=== PATIENT | female | born 1955 | race African-American/Black ===

== ENCOUNTER → 2017-04-04 | Day surgery (SDC) | payer MEDICARE, MEDICAID ==
[~2017-04-04] MED LIST: Fentanyl 100 MCG/2 ML VIAL ONE; Midazolam HCl 2 mg/2 ml Vial ONE; Sodium Chloride 0.9% 10 ML ONE
[2017-04-04 07:27] LABS: #Basophils 0.1 thou/uL (0.0-0.2); #Eosinphils 0.2 thou/uL (0.0-0.7); #Lymphocytes 2.4 thou/uL (1.20-3.40); #Monocytes 0.8 thou/uL (0.11-0.59); #Neutrophils 4.4 thou/uL (1.40-6.50); %Basophils 1.2 % (0.0-1.0); %Lymphocytes 30.7 % (21.0-51.0); %Monocytes 9.8 % (0.0-10.0); %Neutrophils 55.3 % (42.0-75.0); Hemoglobin 13.2 g/dL (12.0-16.0); Mean Corpuscular HGB CONC 32.7 g/dL (32.0-36.0); Mean Corpuscular Hemoglobin 27.9 pg (27.0-31.0); Mean Corpuscular Volume 85.2 fl (81.0-99.0); Platelet Count 287 thou/uL (130-400); RBC Distribution Width 13.9 % (11.5-14.5); Red Blood Cell (RBC) Count 4.74 mill/uL (4.20-5.40); White Blood Cell (WBC) Count 7.9 thou/uL (4.8-10.8)
[2017-04-04 07:38] LABS: PTT 29.6 SEC (22.9-36.1); Prothrombin Time 13.3 SEC (12.0-14.7)
--- NOTE | 2017-04-04 09:29 | ULT ---
ULTRASOUND HEPATIC DOPPLER: HISTORY: Cirrhosis. COMPARISON: None. FINDINGS: Real-time López-scale color Doppler and spectral analysis of the liver was performed. The hepatic con tour is nodular. The liver measures 16.2 cm in length. The main portal vein is patent with antegrade flow. The common bile duct measures 5 mm. The hepatic artery is patent. The hepatic veins are patent with normal directional flow. The right and left portal veins are patent with normal directional flow. The spleen measures 11.4 x 7 x 5.2 cm . The gallbladder has been removed. Sonographic Vasquez sign is negative. IMPRESSION: Hepatic cirrhosis with normal directional vascular flow. POS: [facility]
[2017-04-04 11:52] VITALS: TEMP 97.4; BMI 29.1
--- NOTE | 2017-04-05 07:48 | ULT ---
SONOGRAPHIC GUIDED RANDOM HEPATIC BIOPSY: History: Cirrhosis. FINDINGS: After explaining the procedure and answering all questions, limited sonographic survey was performed. Sterile technique, buffered local anesthesia, sonographic guidance and a sub xiphoid approach were u sed to carefully advance the tip of a 17 gauge Trocar needle into the left liver lobe. Two 18 gauge c ore biopsy specimens were obtained without difficulty. Needle was removed. Post procedure imaging pedro ws no evidence of complication. Patient tolerated the procedure well and was returned to the holding area in good condition for further monitoring. IMPRESSION: Technically successful random hepatic biopsy. Pathology is pending. POS: [facility]
== END ==
LOC: ULT 07:05 → EDSTATUS 08:00 → ULT 08:14
PROVIDERS: ATTEND Internal Medicine Gastroenterology
PROC: BF45ZZZ Ultrasonography of Liver (ICD-10-PCS; principal; 2017-04-04)
PROC: 0FB23ZX Excision of Left Lobe Liver, Percutaneous Approach, Diagnostic (ICD-10-PCS; 2017-04-04)
DX: K75.9 Inflammatory liver disease, unspecified (principal); K74.3 Primary biliary cirrhosis; E11.9 Type 2 diabetes mellitus without complications; I10 Essential (primary) hypertension; E78.5 Hyperlipidemia, unspecified; I25.2 Old myocardial infarction; F17.210 Nicotine dependence, cigarettes, uncomplicated; Z79.2 Long term (current) use of antibiotics; Z79.82 Long term (current) use of aspirin; Z79.899 Other long term (current) drug therapy; Z88.6 Allergy status to analgesic agent; Z88.1 Allergy status to other antibiotic agents; Z88.5 Allergy status to narcotic agent
CPT/HCPCS: 36415; 47000; 76705; 76942; 85025; 85610; 85730; 88307; 88313; A4216; J2250; J3010

== ENCOUNTER 2017-11-27 09:29 | Outpatient (CLI) | payer MEDICARE, MEDICAID | END 2017-11-27 09:30 | disposition home or self-care (01) | LOC: BICMRI 09:29 | PROVIDERS: ATTEND Internal Medicine Gastroenterology | DX: K74.3 Primary biliary cirrhosis (principal); R93.3 Abnormal findings on diagnostic imaging of other parts of digestive tract; K76.9 Liver disease, unspecified | CPT/HCPCS: 74183; 82565 ==

== ENCOUNTER 2017-12-18 08:56 | Outpatient (CLI) | payer MEDICARE, MEDICAID | END 2017-12-18 08:57 | disposition home or self-care (01) | LOC: CP 08:56 | PROVIDERS: ATTEND Internal Medicine | DX: R06.09 Other forms of dyspnea (principal); J45.909 Unspecified asthma, uncomplicated; R91.1 Solitary pulmonary nodule; G47.33 Obstructive sleep apnea (adult) (pediatric) | CPT/HCPCS: 94060; 94727; 94729 ==

== ENCOUNTER 2018-01-20 20:30 | Outpatient (CLI) | payer MEDICARE, MEDICAID | END 2018-01-20 20:31 | disposition home or self-care (01) | LOC: SLEEPLAB 20:30 | PROVIDERS: ATTEND Internal Medicine | DX: G47.33 Obstructive sleep apnea (adult) (pediatric) (principal); R53.83 Other fatigue; E66.9 Obesity, unspecified; R35.1 Nocturia; R51 Headache; I10 Essential (primary) hypertension; R06.83 Snoring; G47.63 Sleep related bruxism; Z68.24 Body mass index [BMI] 24.0-24.9, adult | CPT/HCPCS: 95810 ==

== ENCOUNTER 2018-01-22 09:37 | Day surgery (SDC) | payer MEDICARE, MEDICAID ==
[2018-01-22] MEDS ORDERED: Midazolam HCl 2 mg/2 ml Vial ONE (10:54)
[2018-01-22] MEDS ORDERED: Fentanyl 100 MCG/2 ML VIAL ONE (10:54)
[2018-01-22 12:41] LABS: Anion Gap 13 mmol/L (10-20); BUN (Urea Nitrogen) 19 mg/dL (9.8-20.1); Calc. Creatinine Clearance 0 mL/min (70-130); Calcium 9.9 mg/dL (7.8-10.44); Carbon Dioxide 21 mmol/L (23-31); Chloride 106 mmol/L (98-107); Estimated GFR-MDRD 71; Glucose 93 mg/dL (80-115); Potassium 3.6 mmol/L (3.5-5.1); Sodium 136 mmol/L (136-145)
--- NOTE | 2018-01-22 14:39 | OP ---
DATE OF SERVICE: 01/22/2018 PROCEDURE: Colonoscopy with snare polypectomy. SURGEON: Sunil Duque M.D. ANESTHESIA: Medication given per Anesthesiology Department. PREOPERATIVE DIAGNOSIS: History of colon adenoma POSTOPERATIVE DIAGNOSIS: Transverse colon polyp, 5 mm, status post polypectomy. PROCEDURE IN DETAIL: A written consent was obtained prior to procedure. After adequate sedation, re ctal exam performed was normal. Endoscope was advanced to the cecum. The quality of bowel prep was good. The cecum, ascending colon, hepatic flexure appeared normal. In the mid transverse, a 5 mm se ssile polyp was noted and was removed with a cold snare and retrieved. The splenic flexure, descendi ng colon, and rectosigmoid colon appeared normal. Retroflexion was normal. The patient tolerated th e procedure well. ASSESSMENT: 1. Transverse colon polyp. 2. Otherwise normal colon exam. RECOMMENDATIONS: Await biopsy result.
== END 2018-01-22 12:30 | disposition home or self-care (01) ==
LOC: SDC 09:37
PROVIDERS: ATTEND Internal Medicine Gastroenterology
PROC: 0DBL8ZX Excision of Transverse Colon, Via Natural or Artificial Opening Endoscopic, Diagnostic (ICD-10-PCS; principal; 2018-01-22)
DX: Z12.11 Encounter for screening for malignant neoplasm of colon (principal); D12.3 Benign neoplasm of transverse colon; K74.3 Primary biliary cirrhosis; K59.00 Constipation, unspecified; K21.9 Gastro-esophageal reflux disease without esophagitis; J44.9 Chronic obstructive pulmonary disease, unspecified; F41.9 Anxiety disorder, unspecified; E78.00 Pure hypercholesterolemia, unspecified; I25.10 Atherosclerotic heart disease of native coronary artery without angina pectoris; I10 Essential (primary) hypertension; I25.2 Old myocardial infarction; E11.9 Type 2 diabetes mellitus without complications; F17.210 Nicotine dependence, cigarettes, uncomplicated; Z86.010 Personal history of colon polyps; Z79.4 Long term (current) use of insulin; Z79.899 Other long term (current) drug therapy; Z88.1 Allergy status to other antibiotic agents; Z88.5 Allergy status to narcotic agent; Z88.8 Allergy status to other drugs, medicaments and biological substances
CPT/HCPCS: 36416; 80048; 88305; J2250; J3010

== ENCOUNTER 2018-05-20 08:14 | Outpatient (CLI) | payer MEDICARE, MEDICAID ==
[2018-05-20] MEDS ORDERED: Gadobenate Dimeglumine 529 MG/1 ML (20ML VIAL) ONE (09:34)
--- NOTE | 2018-05-20 11:48 | MRI ---
MRI ABDOMEN WITH AND WITHOUT CONTRAST: Date: 05/20/18 HISTORY: Abnormal imaging of liver. R93.2. COMPARISON: MRI dated 11/27/17. FINDINGS: There is consolidation anterior segment right lower lobe with enhancement. There is also confluent ri ght pericardiophrenic adenopathy measuring up to 1.0 cm in short axis. The adenopathy is similar. The hepatic segment VII 15.0 mm mass previously seen on the prior examination is not seen on today's exam. There are hepatic segment VIII small arterial hyperenhancing foci which are subcentimeter and r etain contrast through the entire examination. There is peripheral flame-shaped arterial enhancement in hepatic segment V which is similar. Somewhat mass-like enhancement hepatic segment V, axial image 1026, series 10, measures 14.0 mm, not previously well seen on the prior examination, which retains c ontrast throughout the exam without any washout. In hepatic segment V abutting the capsule is an area of peripheral enhancement which is somewhat triangular-shaped with adjacent fibrosis which enhances on the 11 minute delayed phase. Spleen is unremarkable. Adrenal glands are unremarkable. Pancreas unremarkable. Cyst intrapolar left kidney. Moderate atherosclerotic plaque at the aorta. IMPRESSION: Small hepatic nodules, some of which were not seen on the prior examination and some of the prior exa m nodules are not seen on this examination. This likely reflects underlying dysplastic nodules with m ild hepatic cirrhosis. There is also evidence of peripheral fibrosis . Follow-up MRI with and without contrast in 6 months is recommended. Recommend correlation with recent biopsy. Given the small perip ancreatic and mildly prominent right pericardiophrenic lymph nodes, primary biliary cirrhosis is with in the differential. POS: [facility]
== END 2018-05-20 08:15 | disposition home or self-care (01) ==
LOC: BICMRI 08:14 → CP 08:15
PROVIDERS: ATTEND Internal Medicine Gastroenterology
DX: J44.9 Chronic obstructive pulmonary disease, unspecified (principal); R93.2 Abnormal findings on diagnostic imaging of liver and biliary tract; K76.9 Liver disease, unspecified; K74.3 Primary biliary cirrhosis; R63.4 Abnormal weight loss; K74.0 Hepatic fibrosis
CPT/HCPCS: 74183; 82565; A9577

== ENCOUNTER 2018-11-26 08:59 | Outpatient (CLI) | payer MEDICARE, MEDICAID ==
--- NOTE | 2018-11-26 09:53 | CT ---
Exam: CHEST CT WITHOUT CONTRAST: HISTORY: Pulmonary nodule. Smoker. COMPARISON: None. FINDINGS: Limited evaluation of the mediastinum due to lack of IV contrast. No mediastinal mass, lymphadenopath y or hematoma. Heart is not enlarged. No significant pericardial fluid. There is extensive atherosclerosis of the aorta. Possible short segment chronic dissection involving the descending thor acic aorta may be present. Extensive coronary calcifications. Mild dilatation of the proximal abdominal aorta measuring 3.4 x 2.5 cm. Multiple hypodensities anterior to the heart with some adjacent serpiginous hypodensities. The possib ility of a vascular lesion cannot be entirely excluded. This largest component measures 1.8 x 1.3 cm and has an attenuation coefficient of 24 Hounsfield units. Gallbladder is surgically absent. Visualized upper solid organs are unremarkable. Extensive emphysematous changes throughout the lung parenchyma. No suspicious masses or consolidation . Linear opacities involving both lower lobes likely representing subsegmental atelectasis. Right lung: Irregular groundglass opacity middle lobe measuring 0.9 x 1.0 cm. Left lung: No masses or consolidation. Trachea and central bronchi are patent. Pleural spaces: No pleural effusion. Pneumothorax: None. IMPRESSION: 1. Extensive emphysematous changes. 2. Mild dilatation of the proximal abdominal aorta, incompletely evaluated. 3. 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 4. Irregular groundglass opacity in the middle lobe. Follow-up CT in 3 months is recommended. CODE T Transcribed Date/Time: 11/26/2018 10:18 AM
== END 2018-11-26 09:00 | disposition home or self-care (01) ==
LOC: BICCT 08:59
PROVIDERS: ATTEND Internal Medicine
DX: R91.1 Solitary pulmonary nodule (principal); I77.811 Abdominal aortic ectasia; R91.8 Other nonspecific abnormal finding of lung field
CPT/HCPCS: 71250

== ENCOUNTER 2020-04-26 11:26 | Outpatient (CLI) | payer MEDICARE, MEDICAID ==
--- NOTE | 2020-04-26 12:19 | CT ---
CT OF THE CHEST WITH IV CONTRAST INDICATION: Follow-up pulmonary nodule COMPARISON: Prior CT the thorax dated December 01, 2019 and November 26, 2018 FINDINGS: CHEST: Lungs: Scattered emphysema is stable. The enlarging pulmonary nodule of the right upper lobe demonstr ates continued enlargement since November 11, 2028 measuring 1.1 x 0.9 cm where previously this measured 1.0 x 0.7 cm. The small groundglass nodular opacity measuring 9.5 mm within the lateral righ t middle lobe is stable. The spiculated pulmonary nodule within the left upper lobe measuring 6 mm is stable. There are areas of subsegmental volume loss involving both lower lobes. Pleural space: No effusion. Mediastinum: Enlarged mediastinal and hilar lymphadenopathy stable. The focal penetrating atheromatou s ulcer involving the descending thoracic aorta image 40 of series 2 is slightly larger measuring 1.2 cm previously measured 1.1 cm. There are severe vascular calcifications seen involving the visual ized vasculature. Upper abdomen:Gallbladder is surgically absent. Visualized adrenal glands appear within normal limits . Osseous structures: No acute osseous abnormality. No destructive osteolytic or osteoblastic lesion i s identified. There is scattered degenerative and osteoarthritic changes. Soft tissues:Normal. IMPRESSION: 1. Continued enlargement of the right upper lobe pulmonary nodule. Other stable scattered pulmonary n odules as above. Stable emphysema. 2. 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 3. Stable mediastinal hilar lymphadenopathy.
[2020-04-26] MEDS ORDERED: Iopamidol 370 76% 100 ML VIAL ONE (14:00)
== END 2020-04-26 11:27 | disposition home or self-care (01) ==
LOC: BICCT 11:26
PROVIDERS: ATTEND Internal Medicine Critical Care Medicine
DX: R91.1 Solitary pulmonary nodule (principal); J44.9 Chronic obstructive pulmonary disease, unspecified; I71.2 Thoracic aortic aneurysm, without rupture; R59.0 Localized enlarged lymph nodes
CPT/HCPCS: 71260; 82565; Q9967

== ENCOUNTER 2020-05-10 11:07 | Outpatient (CLI) | payer MEDICARE, MEDICAID ==
--- NOTE | 2020-05-10 14:30 | PET ---
PET CT: HISTORY: A 65-year-old female with solitary pulmonary nodule. TECHNIQUE: PET scanning with CT attenuation correction was performed from the base of the brain through the prox imal thighs following intravenous administration of 10 mCi of [id number] in the right nicholson d. COMPARISON: None. CORRELATION: CT chest dated 04/26/2020. FINDINGS: There is hypermetabolic activity in the enlarging right upper lobe lung nodule noted on the CT scan w ith an SUV of 7.2. No other hypermetabolic lung nodules are seen. The subcentimeter nodules noted o n the CT scan do not demonstrate abnormal FDG localization. There is derick hypermetabolism in the right paratracheal lymph node with an SUV of 3.4, right hilar l ymph nodes with an SUV of 4, left hilar lymph node with an SUV of 4.8, and a right pericardiac lymph node with an SUV of 3.3. No derick hypermetabolism is seen in the neck, axilla, abdomen, or pelvis. No hypermetabolic, liver, adrenal, or skeletal lesions are identified. There is physiologic activity in the GI and tracts and the visualized portions of the brain. The CT scan used for attenuation correction demonstrates no evidence of pleural effusions or ascites. 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 POS: [facility]
== END 2020-05-10 11:08 | disposition home or self-care (01) ==
LOC: PET 11:07
PROVIDERS: ATTEND Internal Medicine Critical Care Medicine
DX: R91.1 Solitary pulmonary nodule (principal); C34.11 Malignant neoplasm of upper lobe, right bronchus or lung; C77.1 Secondary and unspecified malignant neoplasm of intrathoracic lymph nodes
CPT/HCPCS: 78815; A9552

== ENCOUNTER 2020-08-29 12:24 | Outpatient (CLI) | payer MEDICARE, MEDICAID ==
[2020-08-29 13:53] LABS: Hemoglobin 13.2 g/dL (12.0-15.5); Mean Corpuscular HGB CONC 32.4 g/dL (32.0-36.0); Mean Corpuscular Volume 83.6 fl (81.6-98.3); Mean Platelet Volume 9.3 fl (7.4-10.4); Platelet Count 381 10x3/uL (150-450); RBC Distribution Width 16.3 % (11.5-14.5); Red Blood Cell (RBC) Count 4.88 10x6/uL (3.90-5.03); White Blood Cell (WBC) Count 6.9 10x3/uL (3.5-10.5)
[2020-08-29 14:08] LABS: Anion Gap 15 mmol/L (10-20); BUN (Urea Nitrogen) 25 mg/dL (9.8-20.1); Calc. Creatinine Clearance 0 mL/min (70-130); Carbon Dioxide 27 mmol/L (23-31); Chloride 104 mmol/L (98-107); Glucose 155 mg/dL (80-115); Potassium 4.3 mmol/L (3.5-5.1); Sodium 142 mmol/L (136-145)
[2020-08-29 21:01] LABS: SARS-CoV-2 PCR by NAA Not Detected (NotDetected)
== END 2020-08-29 12:25 | disposition home or self-care (01) ==
LOC: LABBT 12:24
PROVIDERS: ATTEND Thoracic Surgery (Cardiothoracic Vascular Surgery)
DX: Z01.812 Encounter for preprocedural laboratory examination (principal); C34.11 Malignant neoplasm of upper lobe, right bronchus or lung; Z20.822 Contact with and (suspected) exposure to COVID-19
CPT/HCPCS: 80048; 85027; U0003; U0005; 87635

== ENCOUNTER 2020-09-01 06:34 | Day surgery (SDC) | payer MEDICARE, MEDICAID ==
[2020-08-31 09:37] VITALS: BMI 21.2
[2020-09-01] MEDS ORDERED: Fentanyl 100 MCG/2 ML VIAL ONE ×3 (09:37→11:19)
[2020-09-01] MEDS ORDERED: Glycopyrrolate 0.2 MG/ML 5 ML SYRINGE ONE (09:50)
[2020-09-01] MEDS ORDERED: Rocuronium Bromide 10 MG/ML (10ML VIAL) ONE (09:50)
[2020-09-01] MEDS ORDERED: PHENYLEPHRINE-NS 100 MCG/ML 10 ML SYRINGE ONE (09:50)
[2020-09-01] MEDS ORDERED: PROPOFOL 200 MG/20 ML VIAL ONE (09:50)
[2020-09-01] MEDS ORDERED: Ondansetron PF 4 MG/2 ML Vial ONE (09:50)
[2020-09-01] MEDS ORDERED: SUGAMMADEX SODIUM 200 MG/2 ML VIAL ONE (10:28)
[2020-09-01] MEDS ORDERED: Albuterol Sulfate 1.25 MG/3 ML NEB ONE (11:04)
[2020-09-01] MEDS ORDERED: HYDROcodone/Acetaminophen 5/325 mg Tablet ONE (13:03)
== END 2020-09-01 14:10 | disposition home or self-care (01) ==
LOC: SDC 06:34
PROVIDERS: ATTEND Thoracic Surgery (Cardiothoracic Vascular Surgery)
PROC: 07B74ZX Excision of Thorax Lymphatic, Percutaneous Endoscopic Approach, Diagnostic (ICD-10-PCS; principal; 2020-09-01)
DX: I88.8 Other nonspecific lymphadenitis (principal); C34.11 Malignant neoplasm of upper lobe, right bronchus or lung; I10 Essential (primary) hypertension; E11.9 Type 2 diabetes mellitus without complications; I25.10 Atherosclerotic heart disease of native coronary artery without angina pectoris; F17.210 Nicotine dependence, cigarettes, uncomplicated; Z79.4 Long term (current) use of insulin; Z79.82 Long term (current) use of aspirin; Z79.899 Other long term (current) drug therapy; Z88.1 Allergy status to other antibiotic agents; Z88.6 Allergy status to analgesic agent
CPT/HCPCS: 36416; 88184; 88305; 88307; 88312; J0690; J2405; J2704; J3010

== ENCOUNTER 2022-11-22 02:19 | Inpatient (IN) | payer OTHER, MEDICAID ==
[2022-11-22] MEDS ORDERED: cefTRIAXone (ROCEPHIN) 1 GM VIAL ONE (03:37)
[2022-11-22 03:47] LABS: Bacteria/HPF None Seen HPF (None Seen); Bilirubin Negative (Negative); Blood, Urine Negative (Negative); CAUTI Indications for Culture Alt mental st,lethar; Clarity Clear (Clear); Glucose, Urine (Dipstick) Normal (Negative); Ketone, Urine Negative (Negative); Leukocyte Negative Leu/uL (Negative); Nitrite Negative (Negative); Protein, Urine (Dipstick) 300 mg/dL (Neg-Trace); RBC/HPF 0-3 HPF (0-3); Specific Gravity, Urine 1.016 (1.002-1.036); Squamous Epithelial None Seen HPF (0-3); Urobilinogen Normal mg/dL (Less than 2); WBC/HPF 0-3 HPF (0-3)
[2022-11-22 03:50] LABS: #Neutrophils 6.5 thou/uL (1.40-6.50); %Basophils 0.1 % (0.0-1.0); %Eosinophils 0.1 % (0.0-10.0); %Lymphocytes 23.9 % (21.0-51.0); %Monocytes 10.2 % (0.0-10.0); %Neutrophils 65.4 % (42.0-75.0); Hematocrit 40.1 % (36.0-47.0); Hemoglobin 12.6 g/dL (12.0-16.0); Mean Corpuscular HGB CONC 31.4 g/dL (32.0-36.0); Mean Corpuscular Hemoglobin 25.6 pg (27.0-31.0); Mean Corpuscular Volume 81.5 fl (78.0-98.0); Mean Platelet Volume 9.1 fL (7.4-10.4); Platelet Count 611 10x3/uL (130-400); RBC Distribution Width 17.7 % (11.5-14.5); Red Blood Cell (RBC) Count 4.92 mill/uL (4.20-5.40)
[2022-11-22 03:52] LABS: SARS-CoV-2 NAA Rapid Test Not Detected (NotDetected)
[2022-11-22 04:06] LABS: Troponin I 0.013 ng/mL (< 0.028)
[2022-11-22] MEDS ORDERED: Azithromycin 500 MG VIAL ONE (04:11)
[2022-11-22 04:13] LABS: Urine Culture Reflex No No
[2022-11-22 04:24] LABS: ALT (SGPT) 9 U/L (8-55); AST (SGOT) 16 U/L (5-34); Albumin 4.1 g/dL (3.4-4.8); Alkaline Phosphatase 133 U/L (40-110); Anion Gap 18 mmol/L (10-20); BUN (Urea Nitrogen) 21 mg/dL (9.8-20.1); Bilirubin, Total 0.4 mg/dL (0.2-1.2); Calc. Creatinine Clearance 0 mL/min (70-130); Calcium 10.5 mg/dL (7.8-10.44); Carbon Dioxide 26 mmol/L (23-31); Chloride 97 mmol/L (98-107); Estimated GFR 51; Globulin 4.9 g/dL (2.4-3.5); Glucose 180 mg/dL (80-115); Potassium 3.6 mmol/L (3.5-5.1); Sodium 137 mmol/L (136-145)
[2022-11-22] MEDS ORDERED: Labetalol HCl 100 MG/20 ML VIAL ONE (05:44)
[2022-11-22 06:36] LABS: Lactic Acid 1.6 mmol/L (0.5-2.2)
[2022-11-22] MEDS ORDERED: hydrALAZINE 20 MG/ML VIAL ONE (06:42)
[2022-11-22] MEDS ORDERED: Haloperidol Lactate 5 MG/ML VIAL ONE (07:14)
[2022-11-22] MEDS ORDERED: Dextrose 5% in Water 1,000 ML IV PRN (08:19)
[2022-11-22] MEDS ORDERED: Glucagon 1 MG/ML KIT IM PRN (08:19)
[2022-11-22] MEDS ORDERED: Dextrose 50% Abboject 50 ML SYRINGE SLOW IVP PRN (08:19)
[2022-11-22] MEDS ORDERED: Ipratropium/Albuterol 3 ML NEB NEB PRN (08:55)
[2022-11-22 08:56] VITALS: BMI 26.3
[2022-11-22] MEDS: Sodium Chloride 0.9% 1,000 ML IV SCH ×2 (09:18→23:08)
[2022-11-22] MEDS: Aspirin 81 mg Enteric Coated Tablet PO SCH (09:20)
[2022-11-22 10:01] LABS: Amphetamine Not Detected (NotDetected); Barbiturates Screen Not Detected (NotDetected); Benzodiazepine Screen Detected (NotDetected); Cocaine Metabolite Screen Not Detected (NotDetected); Methadone Not Detected (NotDetected); Methamphetamine Not Detected (NotDetected); Opiate Screen Not Detected (NotDetected); Oxycodone Screen Not Detected (NotDetected); Phencyclidine (PCP) Not Detected (NotDetected); THC/Cannabinoid Screen Not Detected (NotDetected); Tricyclic Screen Not Detected (NotDetected)
[2022-11-22] MEDS: HumaLOG 300 UNITS/3 ML VIAL SC PRN ×2 (10:53→17:30)
[2022-11-22] MEDS ORDERED: Lorazepam 2 MG/ML VIAL SLOW IVP SCH ×2 (12:15→22:15)
[2022-11-22] MEDS ORDERED: Sodium Chloride 0.9% 1,000 ML IV SCH (14:00)
[2022-11-22] MEDS: cloNIDine 0.2mg/24 Hour PATCH TD SCH (15:01)
[2022-11-22] MEDS ORDERED: Metoprolol Tartrate 5 MG/5 ML VIAL IVP SCH ×2 (19:15→21:45)
[2022-11-22] MEDS ORDERED: dilTIAZem 125 MG in Sodium Chloride 0.9% 100 ML IVPB SCH (22:15)
[2022-11-22] MEDS ORDERED: Sodium Chloride 0.9% 500 ML IV SCH (22:15)
[2022-11-23] MEDS ORDERED: Lorazepam 2 MG/ML VIAL SLOW IVP SCH (03:45)
[2022-11-23 03:49] LABS: #Monocytes 1.6 thou/uL (0.11-0.59); #Neutrophils 6.6 thou/uL (1.40-6.50); %Basophils 0.3 % (0.0-1.0); %Eosinophils 0.3 % (0.0-10.0); %Lymphocytes 25.9 % (21.0-51.0); Hematocrit 40.4 % (36.0-47.0); Hemoglobin 12.1 g/dL (12.0-16.0); Mean Corpuscular Hemoglobin 25.9 pg (27.0-31.0); Mean Corpuscular Volume 86.3 fl (78.0-98.0); Mean Platelet Volume 9.2 fL (7.4-10.4); Platelet Count 476 10x3/uL (130-400); RBC Distribution Width 18.5 % (11.5-14.5); Red Blood Cell (RBC) Count 4.68 mill/uL (4.20-5.40); White Blood Cell (WBC) Count 11.1 10x3/uL (4.8-10.8)
[2022-11-23 04:34] LABS: AST (SGOT) 15 U/L (5-34); Bilirubin, Total 0.5 mg/dL (0.2-1.2); Calcium 9.1 mg/dL (7.8-10.44); Chloride 106 mmol/L (98-107); Potassium 3.5 mmol/L (3.5-5.1); Sodium 137 mmol/L (136-145)
[2022-11-23 04:42] LABS: Albumin 3.6 g/dL (3.4-4.8)
[2022-11-23 04:44] LABS: Glucose 168 mg/dL (80-115)
[2022-11-23 04:45] LABS: Globulin 3.9 g/dL (2.4-3.5); Protein, Total 7.5 g/dL (5.8-8.1)
[2022-11-23 04:46] LABS: Carbon Dioxide 15 mmol/L (23-31)
[2022-11-23 04:47] LABS: Alkaline Phosphatase 116 U/L (40-110)
[2022-11-23 04:48] LABS: BUN (Urea Nitrogen) 32 mg/dL (9.8-20.1); Calc. Creatinine Clearance 0 mL/min (70-130); Estimated GFR 39
[2022-11-23 04:50] LABS: ALT (SGPT) 8 U/L (8-55)
[2022-11-23] MEDS ORDERED: Levothyroxine Sodium 112 MCG TAB PO SCH (06:00)
[2022-11-23] MEDS: Sodium Chloride 0.9% 1,000 ML IV SCH (06:42)
[2022-11-23] MEDS ORDERED: dilTIAZem 125 MG in Sodium Chloride 0.9% 100 ML IVPB SCH (08:18)
[2022-11-23] MEDS: Aspirin 81 mg Enteric Coated Tablet PO SCH (08:34)
[2022-11-23] MEDS ORDERED: Digoxin 0.5 MG/2 ML AMP SLOW IVP SCH (09:00)
[2022-11-23] MEDS ORDERED: Electrolyte Replacement Protocol 1 EACH FS SCH (09:15)
[2022-11-23] MEDS ORDERED: Amiodarone 150 MG, Admixture Fee 1 EACH in Dextrose 5% in Water 100 ML IVPB SCH (09:15)
[2022-11-23] MEDS ORDERED: Electrolyte Replacement Protocol FS PRN (09:30)
[2022-11-23] MEDS ORDERED: Cefepime 2 GM in Sodium Chloride 0.9% 100 ML IVPB SCH (09:30)
[2022-11-23 09:36] LABS: Anion Gap 20 mmol/L (10-20)
[2022-11-23] MEDS: Amiodarone 450 MG, Admixture Fee 1 EACH in Dextrose 5% in Water 250 ML IVPB SCH (09:53)
[2022-11-23 10:20] LABS: ALT (SGPT) Less than 7 U/L (8-55); AST (SGOT) 9 U/L (5-34); Albumin 3.7 g/dL (3.4-4.8); Alkaline Phosphatase 116 U/L (40-110); Bilirubin, Direct 0.2 mg/dL (0.1-0.3); Bilirubin, Total 0.5 mg/dL (0.2-1.2); Magnesium 1.8 mg/dL (1.6-2.6); Protein, Total 7.2 g/dL (5.8-8.1)
[2022-11-23] MEDS ORDERED: Magnesium 2 GM/50 ML(in water) 2 GM in Premix Bag 1 BAG IVPB SCH (11:30)
[2022-11-23] MEDS: Sodium Bicarbonate 150 MEQ in Dextrose 5% in Water 1,000 ML IV SCH (11:53)
[2022-11-23] MEDS: Potassium Chloride 20 MEQ in Premix Bag 1 BAG IVPB SCH ×3 (12:45→22:24)
[2022-11-23] MEDS: HumaLOG 300 UNITS/3 ML VIAL SC PRN (13:14)
[2022-11-23] MEDS ORDERED: Metoprolol Tartrate 5 MG/5 ML VIAL IVP SCH (13:30)
[2022-11-23] MEDS ORDERED: Metoprolol Tartrate 5 MG/5 ML VIAL ONE (13:41)
[2022-11-23] MEDS ORDERED: Amlodipine 5 MG TAB PO SCH (16:45)
[2022-11-23] MEDS: hydrALAZINE 20 MG/ML VIAL SLOW IVP PRN (16:45)
[2022-11-23 17:41] LABS: Anion Gap 16 mmol/L (10-20); BUN (Urea Nitrogen) 29 mg/dL (9.8-20.1); Calc. Creatinine Clearance 47 mL/min (70-130); Calcium 8.9 mg/dL (7.8-10.44); Carbon Dioxide 18 mmol/L (23-31); Chloride 104 mmol/L (98-107); Estimated GFR 51; Glucose 182 mg/dL (80-115); Magnesium 2.8 mg/dL (1.6-2.6); Potassium 3.4 mmol/L (3.5-5.1); Sodium 135 mmol/L (136-145)
[2022-11-23] MEDS: Cefepime 2 GM in Sodium Chloride 0.9% 100 ML IVPB SCH (20:57)
[2022-11-23] MEDS: Potassium Chloride 20 MEQ TAB PO SCH ×2 (21:00→21:20)
[2022-11-24] MEDS: Potassium Chloride 20 MEQ in Premix Bag 1 BAG IVPB SCH (01:09)
[2022-11-24 04:54] LABS: #Eosinphils 0.2 thou/uL (0.0-0.7); #Monocytes 0.9 thou/uL (0.11-0.59); #Neutrophils 5.8 thou/uL (1.40-6.50); %Basophils 0.2 % (0.0-1.0); %Eosinophils 2.4 % (0.0-10.0); %Lymphocytes 20.9 % (21.0-51.0); %Monocytes 10.7 % (0.0-10.0); %Neutrophils 65.6 % (42.0-75.0); Hematocrit 42.1 % (36.0-47.0); Hemoglobin 13.5 g/dL (12.0-16.0); Mean Corpuscular HGB CONC 32.1 g/dL (32.0-36.0); Mean Corpuscular Hemoglobin 25.9 pg (27.0-31.0); Mean Corpuscular Volume 80.7 fl (78.0-98.0); Mean Platelet Volume 9.7 fL (7.4-10.4); Platelet Count 372 10x3/uL (130-400); RBC Distribution Width 18.6 % (11.5-14.5); Red Blood Cell (RBC) Count 5.22 mill/uL (4.20-5.40); White Blood Cell (WBC) Count 8.8 10x3/uL (4.8-10.8)
[2022-11-24 04:59] LABS: Anion Gap 18 mmol/L (10-20); BUN (Urea Nitrogen) 24 mg/dL (9.8-20.1); Calc. Creatinine Clearance 47 mL/min (70-130); Carbon Dioxide 22 mmol/L (23-31); Chloride 100 mmol/L (98-107); Estimated GFR 50; Glucose 214 mg/dL (80-115); Potassium 3.9 mmol/L (3.5-5.1); Sodium 136 mmol/L (136-145)
[2022-11-24 05:20] LABS: Free T4 (Free Thyroxine) 1.51 ng/dL (0.70-1.48)
[2022-11-24] MEDS: hydrALAZINE 20 MG/ML VIAL SLOW IVP PRN (06:28)
[2022-11-24] MEDS: Cefepime 2 GM in Sodium Chloride 0.9% 100 ML IVPB SCH ×2 (08:21→22:29)
[2022-11-24] MEDS: Amiodarone 450 MG, Admixture Fee 1 EACH in Dextrose 5% in Water 250 ML IVPB SCH (08:22)
[2022-11-24] MEDS: Amlodipine 5 MG TAB PO SCH (08:22)
[2022-11-24] MEDS: Aspirin 81 mg Enteric Coated Tablet PO SCH (08:22)
[2022-11-24] MEDS: Sodium Bicarbonate 150 MEQ in Dextrose 5% in Water 1,000 ML IV SCH (09:47)
[2022-11-25] MEDS: Amiodarone 450 MG, Admixture Fee 1 EACH in Dextrose 5% in Water 250 ML IVPB SCH (01:00)
[2022-11-25] MEDS ORDERED: Loperamide HCl 2 MG CAP PO PRN (05:47)
[2022-11-25 06:03] LABS: Anion Gap 14 mmol/L (10-20); BUN (Urea Nitrogen) 12 mg/dL (9.8-20.1); Calc. Creatinine Clearance 54 mL/min (70-130); Calcium 8.6 mg/dL (7.8-10.44); Carbon Dioxide 21 mmol/L (23-31); Chloride 102 mmol/L (98-107); Estimated GFR 59; Glucose 148 mg/dL (80-115); Potassium 3.2 mmol/L (3.5-5.1); Sodium 134 mmol/L (136-145)
[2022-11-25] MEDS ORDERED: Potassium Chloride 20 MEQ TAB PO SCH (08:00)
[2022-11-25] MEDS ORDERED: Amiodarone 200 MG TAB PO SCH (09:00)
[2022-11-25] MEDS ORDERED: Amiodarone 450 MG, Admixture Fee 1 EACH in Dextrose 5% in Water 250 ML IVPB SCH (09:15)
[2022-11-25] MEDS: Amlodipine 5 MG TAB PO SCH (09:21)
[2022-11-25] MEDS: Amiodarone 200 MG TAB PO SCH ×3 (09:21→16:55)
[2022-11-25] MEDS: Aspirin 81 mg Enteric Coated Tablet PO SCH (09:21)
[2022-11-25 10:32] LABS: #Basophils 0.1 thou/uL (0.0-0.2); #Eosinphils 0.3 thou/uL (0.0-0.7); #Monocytes 2.1 thou/uL (0.11-0.59); #Neutrophils 12.1 thou/uL (1.40-6.50); %Basophils 0.3 % (0.0-1.0); %Eosinophils 1.6 % (0.0-10.0); %Lymphocytes 14.2 % (21.0-51.0); %Monocytes 12.2 % (0.0-10.0); %Neutrophils 71.3 % (42.0-75.0); Hematocrit 34.3 % (36.0-47.0); Mean Corpuscular HGB CONC 30.3 g/dL (32.0-36.0); Mean Corpuscular Hemoglobin 25.9 pg (27.0-31.0); Mean Corpuscular Volume 85.5 fl (78.0-98.0); Mean Platelet Volume 9.3 fL (7.4-10.4); Platelet Count 370 10x3/uL (130-400); RBC Distribution Width 18.4 % (11.5-14.5); Red Blood Cell (RBC) Count 4.01 mill/uL (4.20-5.40)
[2022-11-25 10:41] LABS: Hemoglobin 10.4 g/dL (12.0-16.0)
[2022-11-25] MEDS: Cefepime 2 GM in Sodium Chloride 0.9% 100 ML IVPB SCH ×2 (12:04→20:40)
[2022-11-25] MEDS: Potassium Chloride 20 MEQ in Premix Bag 1 BAG IVPB SCH ×2 (13:52→16:54)
[2022-11-25] MEDS: Sodium Chloride 0.9% 1,000 ML IV SCH (13:52)
[2022-11-25] MEDS: hydrALAZINE 20 MG/ML VIAL SLOW IVP PRN (20:51)
[2022-11-26] MEDS: Amlodipine 5 MG TAB PO SCH (09:02)
[2022-11-26] MEDS: Aspirin 81 mg Enteric Coated Tablet PO SCH (09:03)
[2022-11-26] MEDS: Cefepime 2 GM in Sodium Chloride 0.9% 100 ML IVPB SCH ×2 (09:03→23:01)
[2022-11-26] MEDS: Amiodarone 200 MG TAB PO SCH ×3 (09:03→18:07)
[2022-11-26] MEDS: Sodium Chloride 0.9% 1,000 ML IV SCH (09:04)
[2022-11-26 17:44] LABS: #Basophils 0.1 thou/uL (0.0-0.2); #Eosinphils 0.2 thou/uL (0.0-0.7); #Monocytes 2.1 thou/uL (0.11-0.59); #Neutrophils 12.4 thou/uL (1.40-6.50); %Basophils 0.3 % (0.0-1.0); %Eosinophils 1.4 % (0.0-10.0); %Lymphocytes 13.5 % (21.0-51.0); %Neutrophils 71.9 % (42.0-75.0); Hematocrit 30.3 % (36.0-47.0); Hemoglobin 9.4 g/dL (12.0-16.0); Mean Corpuscular Volume 83.9 fl (78.0-98.0); Mean Platelet Volume 8.9 fL (7.4-10.4); Platelet Count 438 10x3/uL (130-400); RBC Distribution Width 18.4 % (11.5-14.5); Red Blood Cell (RBC) Count 3.61 mill/uL (4.20-5.40); White Blood Cell (WBC) Count 17.3 10x3/uL (4.8-10.8)
[2022-11-26 18:09] LABS: ALT (SGPT) Less than 7 U/L (8-55); AST (SGOT) 7 U/L (5-34); Albumin 3.3 g/dL (3.4-4.8); Alkaline Phosphatase 92 U/L (40-110); Anion Gap 10 mmol/L (10-20); BUN (Urea Nitrogen) 10 mg/dL (9.8-20.1); Bilirubin, Total 0.4 mg/dL (0.2-1.2); Calc. Creatinine Clearance 52 mL/min (70-130); Calcium 8.7 mg/dL (7.8-10.44); Carbon Dioxide 18 mmol/L (23-31); Chloride 108 mmol/L (98-107); Estimated GFR 57; Globulin 3.2 g/dL (2.4-3.5); Glucose 127 mg/dL (80-115); Potassium 3.8 mmol/L (3.5-5.1); Protein, Total 6.5 g/dL (5.8-8.1); Sodium 132 mmol/L (136-145)
[2022-11-27] MEDS: Aspirin 81 mg Enteric Coated Tablet PO SCH (10:46)
[2022-11-27] MEDS: Amiodarone 200 MG TAB PO SCH ×3 (10:46→18:00)
[2022-11-27] MEDS: Amlodipine 5 MG TAB PO SCH (10:46)
[2022-11-27] MEDS: Cefepime 2 GM in Sodium Chloride 0.9% 100 ML IVPB SCH (10:53)
[2022-11-27] MEDS: Cefdinir 300 MG CAP PO SCH (20:55)
[2022-11-27] MEDS: Morphine 2 MG/ML VIAL SLOW IVP PRN (22:04)
[2022-11-27] MEDS: Sodium Chloride 0.9% 1,000 ML IV SCH (22:25)
[2022-11-28] MEDS ORDERED: Ibuprofen 600 MG TAB PO SCH (00:30)
[2022-11-28] MEDS: Cefdinir 300 MG CAP PO SCH ×2 (11:11→20:05)
[2022-11-28] MEDS: Amiodarone 200 MG TAB PO SCH ×2 (11:11→20:05)
[2022-11-28] MEDS: NIFEdipine XL 60 MG TAB PO SCH (11:12)
[2022-11-28] MEDS: Aspirin 81 mg Enteric Coated Tablet PO SCH (11:12)
[2022-11-28] MEDS: Morphine 2 MG/ML VIAL SLOW IVP PRN ×2 (16:25→21:54)
[2022-11-29] MEDS: Amiodarone 200 MG TAB PO SCH ×2 (09:02→20:55)
[2022-11-29] MEDS: NIFEdipine XL 60 MG TAB PO SCH (09:03)
[2022-11-29] MEDS: Aspirin 81 mg Enteric Coated Tablet PO SCH (09:03)
[2022-11-29] MEDS: Morphine 2 MG/ML VIAL SLOW IVP PRN ×3 (09:03→20:54)
[2022-11-29] MEDS: Cefdinir 300 MG CAP PO SCH ×2 (09:03→20:55)
[2022-11-29] MEDS: cloNIDine 0.2mg/24 Hour PATCH TD SCH (16:54)
[2022-11-30] MEDS: Morphine 2 MG/ML VIAL SLOW IVP PRN ×3 (10:26→20:22)
[2022-11-30] MEDS: Cefdinir 300 MG CAP PO SCH ×2 (10:27→20:22)
[2022-11-30] MEDS: Amiodarone 200 MG TAB PO SCH ×2 (10:27→20:22)
[2022-11-30] MEDS: NIFEdipine XL 60 MG TAB PO SCH (10:27)
[2022-11-30] MEDS: Aspirin 81 mg Enteric Coated Tablet PO SCH (10:27)
[2022-11-30 15:14] LABS: #Basophils 0.1 thou/uL (0.0-0.2); #Eosinphils 0.3 thou/uL (0.0-0.7); #Monocytes 0.9 thou/uL (0.11-0.59); #Neutrophils 7.2 thou/uL (1.40-6.50); %Basophils 0.5 % (0.0-1.0); %Eosinophils 2.7 % (0.0-10.0); %Lymphocytes 17.9 % (21.0-51.0); %Monocytes 8.7 % (0.0-10.0); %Neutrophils 68.6 % (42.0-75.0); Hematocrit 29.2 % (36.0-47.0); Mean Corpuscular HGB CONC 30.8 g/dL (32.0-36.0); Mean Corpuscular Hemoglobin 25.6 pg (27.0-31.0); Mean Corpuscular Volume 83.2 fl (78.0-98.0); Mean Platelet Volume 8.6 fL (7.4-10.4); Platelet Count 497 10x3/uL (130-400); RBC Distribution Width 18.4 % (11.5-14.5); Red Blood Cell (RBC) Count 3.51 mill/uL (4.20-5.40); White Blood Cell (WBC) Count 10.5 10x3/uL (4.8-10.8)
[2022-11-30 15:40] LABS: ALT (SGPT) Less than 7 U/L (8-55); AST (SGOT) 8 U/L (5-34); Albumin 3.3 g/dL (3.4-4.8); Alkaline Phosphatase 91 U/L (40-110); Anion Gap 13 mmol/L (10-20); BUN (Urea Nitrogen) 6 mg/dL (9.8-20.1); Bilirubin, Total 0.2 mg/dL (0.2-1.2); Calc. Creatinine Clearance 60 mL/min (70-130); Calcium 8.9 mg/dL (7.8-10.44); Carbon Dioxide 18 mmol/L (23-31); Chloride 109 mmol/L (98-107); Estimated GFR 67; Globulin 3.4 g/dL (2.4-3.5); Glucose 101 mg/dL (80-115); Potassium 4.1 mmol/L (3.5-5.1); Protein, Total 6.7 g/dL (5.8-8.1); Sodium 136 mmol/L (136-145)
[2022-12-01] MEDS: NIFEdipine XL 60 MG TAB PO SCH (09:33)
[2022-12-01] MEDS: Cefdinir 300 MG CAP PO SCH ×2 (09:33→21:09)
[2022-12-01] MEDS: Morphine 2 MG/ML VIAL SLOW IVP PRN ×4 (09:34→22:25)
[2022-12-01] MEDS: Amiodarone 200 MG TAB PO SCH ×2 (09:34→21:09)
[2022-12-01] MEDS: Aspirin 81 mg Enteric Coated Tablet PO SCH (09:34)
[2022-12-02] MEDS: Amiodarone 200 MG TAB PO SCH ×2 (09:01→20:13)
[2022-12-02] MEDS: Aspirin 81 mg Enteric Coated Tablet PO SCH (09:01)
[2022-12-02] MEDS: Cefdinir 300 MG CAP PO SCH ×2 (09:01→20:13)
[2022-12-02] MEDS: NIFEdipine XL 60 MG TAB PO SCH (09:01)
[2022-12-02] MEDS: Morphine 2 MG/ML VIAL SLOW IVP PRN ×2 (09:05→20:11)
[2022-12-02] MEDS: traMADol HCl 50 MG TAB PO PRN (11:15)
[2022-12-02] MEDS: Ondansetron PF 4 MG/2 ML Vial IVP PRN (20:29)
[2022-12-03] MEDS: Morphine 2 MG/ML VIAL SLOW IVP PRN ×5 (02:41→21:39)
[2022-12-03] MEDS: NIFEdipine XL 60 MG TAB PO SCH (08:46)
[2022-12-03] MEDS: Amiodarone 200 MG TAB PO SCH ×2 (08:46→20:32)
[2022-12-03] MEDS: Aspirin 81 mg Enteric Coated Tablet PO SCH (08:46)
[2022-12-03] MEDS: Cefdinir 300 MG CAP PO SCH ×2 (08:46→20:32)
[2022-12-03] MEDS: Ondansetron ODT 4 MG TAB PO PRN (17:26)
[2022-12-04] MEDS: Morphine 2 MG/ML VIAL SLOW IVP PRN ×2 (03:06→10:57)
[2022-12-04] MEDS: Cefdinir 300 MG CAP PO SCH ×2 (08:30→19:57)
[2022-12-04] MEDS: Aspirin 81 mg Enteric Coated Tablet PO SCH (08:31)
[2022-12-04] MEDS: Amiodarone 200 MG TAB PO SCH ×2 (08:31→19:57)
[2022-12-04] MEDS: NIFEdipine XL 60 MG TAB PO SCH (08:31)
[2022-12-04] MEDS: Ondansetron ODT 4 MG TAB PO PRN (13:18)
[2022-12-04] MEDS: Morphine 2 MG/ML VIAL SLOW IVP SCH ×2 (17:35→22:05)
[2022-12-04] MEDS: Ondansetron PF 4 MG/2 ML Vial IVP PRN (19:57)
[2022-12-04] MEDS: GUAIFENESIN SF SOLN 200 MG/10 ML UDCUP PO PRN (22:05)
[2022-12-05] MEDS: Morphine 2 MG/ML VIAL SLOW IVP SCH ×4 (05:29→23:09)
[2022-12-05] MEDS: NIFEdipine XL 60 MG TAB PO SCH (09:34)
[2022-12-05] MEDS: Amiodarone 200 MG TAB PO SCH ×2 (09:34→20:58)
[2022-12-05] MEDS: Aspirin 81 mg Enteric Coated Tablet PO SCH (09:34)
[2022-12-05] MEDS: Cefdinir 300 MG CAP PO SCH ×2 (09:34→20:58)
[2022-12-05] MEDS: GUAIFENESIN SF SOLN 200 MG/10 ML UDCUP PO PRN ×2 (16:46→20:58)
[2022-12-05] MEDS: traMADol HCl 50 MG TAB PO PRN (16:46)
[2022-12-05] MEDS ORDERED: Lidocaine 4% Patch TD SCH (23:45)
[2022-12-06] MEDS: GUAIFENESIN SF SOLN 200 MG/10 ML UDCUP PO PRN (01:06)
[2022-12-06] MEDS: Morphine 2 MG/ML VIAL SLOW IVP SCH ×2 (05:15→13:34)
[2022-12-06] MEDS: Amiodarone 200 MG TAB PO SCH (09:36)
[2022-12-06] MEDS: Cefdinir 300 MG CAP PO SCH (09:36)
[2022-12-06] MEDS: Aspirin 81 mg Enteric Coated Tablet PO SCH (09:36)
[2022-12-06] MEDS: NIFEdipine XL 60 MG TAB PO SCH (09:37)
[2022-12-06 11:29] VITALS: BP 145/87; TEMP 97.6
[2022-12-06] MEDS ORDERED: Transdermal Patch Removal TOP SCH (11:45)
== END 2022-12-06 12:50 | DRG 193 ==
LOC: ERS 02:19 → 2NO 08:08 → OBSVTOIN 11-23 11:27 → SURG A 11-30 09:26
PROVIDERS: ADMIT Student in an Organized Health Care Education/Training Program; ATTEND Family Medicine
DX: J18.9 Pneumonia, unspecified organism (principal); G93.41 Metabolic encephalopathy; N17.9 Acute kidney failure, unspecified; I48.92 Unspecified atrial flutter; E87.20 Acidosis, unspecified; I48.0 Paroxysmal atrial fibrillation; I25.10 Atherosclerotic heart disease of native coronary artery without angina pectoris; F17.210 Nicotine dependence, cigarettes, uncomplicated; E11.22 Type 2 diabetes mellitus with diabetic chronic kidney disease; I12.9 Hypertensive chronic kidney disease with stage 1 through stage 4 chronic kidney disease, or unspecified chronic kidney disease; N18.31 Chronic kidney disease, stage 3a; Z20.822 Contact with and (suspected) exposure to COVID-19; D86.9 Sarcoidosis, unspecified; D75.839 Thrombocytosis, unspecified; E83.52 Hypercalcemia; F03.90 Unspecified dementia, unspecified severity, without behavioral disturbance, psychotic disturbance, mood disturbance, and anxiety; E78.00 Pure hypercholesterolemia, unspecified; F41.9 Anxiety disorder, unspecified; Z88.5 Allergy status to narcotic agent; Z95.1 Presence of aortocoronary bypass graft; Z88.1 Allergy status to other antibiotic agents; Z88.8 Allergy status to other drugs, medicaments and biological substances; Z90.710 Acquired absence of both cervix and uterus; Z98.890 Other specified postprocedural states; Z79.51 Long term (current) use of inhaled steroids; Z79.82 Long term (current) use of aspirin; Z79.899 Other long term (current) drug therapy; Z79.4 Long term (current) use of insulin; Z79.84 Long term (current) use of oral hypoglycemic drugs; Z90.49 Acquired absence of other specified parts of digestive tract
CPT/HCPCS: 36415; 36416; 51701; 70450; 71045; 80048; 80053; 80306; 81001; 83036; 83605; 83735; 83880; 84439; 84443; 84481; 84484; 85025; 87040; 87086; 93005; 93010; 94640; 96365; 96367; 96375; 97139; J0282; J0360; J0456; J0692; J0696; J1630; J1650; J1815; J2060; J2272; J2405; J3475; J3480; J3490; J7030; J7050; J7070; J7620; Q0162